=== PATIENT | female | born 2000 | race American Indian/Alaskan Native ===

== ENCOUNTER 2021-05-22 00:22 | Emergency (ER) | payer OTHER ==
[2021-05-22 02:10] LABS: Bilirubin,Urine NEG (Negative); Blood,Urine NEG (Negative); Color,Urine Yellow (Yellow); HCG Qualitative,Urine Negative (Negative); Mucus,Urine 3+ /HPF; Protein,Urine <15 mg/dL mg/dL (Negative); Urobilinogen,Urine < 2.0 mg/dL (<2.0)
[2021-05-22 02:20] LABS: Amphetamine Screen,Urine PRESUMPTIVE NEGATIVE; Benzodiazepines Screen,Urine PRESUMPTIVE NEGATIVE; Cannabinoid Screen,Urine PRESUMPTIVE NEGATIVE; Cocaine Screen,Urine PRESUMPTIVE NEGATIVE; Methadone Screen,Urine PRESUMPTIVE NEGATIVE; Opiate Screen,Urine PRESUMPTIVE NEGATIVE
[2021-05-22 02:23] LABS: Basophils # (Auto) 0.1 K/mm3 (0.0-0.1); Basophils % (Auto) 0.7 % (0.0-1.8); Eosinophils # (Auto) 0.1 K/mm3 (0.0-0.4); Eosinophils % (Auto) 1.1 % (0.0-4.3); Hemoglobin 12.9 gm/dl (10.1-14.3); Lymphocytes # (Auto) 1.5 K/mm3 (1.2-5.4); Lymphocytes % (Auto) 17.2 % (13.4-35.0); Mean Corpuscular HGB Conc 33 % (30-34); Mean Corpuscular Volume 86 fl (79-97); Monocytes # (Auto) 1.1 K/mm3 (0.0-0.8); Monocytes % (Auto) 13.2 % (0.0-7.3); Platelet Count 340 K/mm3 (140-440); Red Blood Count 4.53 M/mm3 (3.65-5.03); Red Cell Distribution Width 14.4 % (13.2-15.2)
[2021-05-22] MEDS ORDERED: LORazepam 2 MG/ML VIAL IM ONE (02:24)
[2021-05-22 02:37] LABS: BUN/Creatinine Ratio 14; Blood Urea Nitrogen 11 mg/dL (7-17); Calcium 9.9 mg/dL (8.4-10.2); Hemolysis Index 5
--- NOTE | 2021-05-22 05:00 | Emergency Department Report ---
ED Psych HPI - General Chief Complaint: Psych Stated Complaint: ANXIETY ATTACK Source: patient Mode of arrival: Ambulatory - History of Present Illness MD Complaint: suicidal ideation (This patient states she is hearing voices but refused to give details) Associated Psychiatric Symptoms: suicidal ideation Improves With: none Worsens With: none Context: recent drug abuse Treatments Prior to Arrival: none If Self Harm: other (The patient is very vague and will give minimal information) - Related Data Home Medications Medication Instructions Recorded Confirmed Last Taken hydrOXYzine HCL [Atarax] 25 mg PO Q6HR PRN 05/22/21 05/22/21 05/21/21 19:30 Allergies Allergy/AdvReac Type Severity Reaction Status Date / Time No Known Allergies Allergy Unverified 05/22/21 00:39 ED Review of Systems ROS: Stated complaint: ANXIETY ATTACK Other details as noted in HPI Psychiatric: anxiety, suicidal thoughts ED Past Medical Hx - Past Medical History Previous Medical History?: No Hx Psychiatric Treatment: (Pt denies) - Surgical History Past Surgical History?: Yes Additional Surgical History: ovarian - Social History Smoking Status: Former Smoker Substance Use Type: Alcohol - Medications Home Medications: Home Medications Medication Instructions Recorded Confirmed Last Taken Type hydrOXYzine HCL [Atarax] 25 mg PO Q6HR PRN 05/22/21 05/22/21 05/21/21 19:30 History ED Physical Exam - General Limitations: No Limitations General appearance: alert, anxious, other (Uncooperative) - Head Head exam: Present: atraumatic, normocephalic - Eye Eye exam: Present: normal appearance - ENT ENT exam: Present: mucous membranes moist - Neck Neck exam: Present: normal inspection - Respiratory Respiratory exam: Present: normal lung sounds bilaterally. Absent: respiratory distress - Cardiovascular Cardiovascular Exam: Present: tachycardia, normal heart sounds. Absent: systolic murmur, diastolic murmur - GI/Abdominal GI/Abdominal exam: Present: soft, normal bowel sounds - Rectal Rectal exam: Present: deferred - Extremities Exam Extremities exam: Present: normal inspection - Neurological Exam Neurological exam: Present: alert, oriented X3, CN II-XII intact, normal gait - Psychiatric Psychiatric exam: Present: anxious, flat affect - Skin Skin exam: Present: warm, dry, intact, normal color. Absent: rash ED Course Vital Signs 05/22/21 05/22/21 00:26 02:01 Temperature 98.7 F Pulse Rate 130 H 125 H Respiratory 18 18 Rate Blood Pressure 147/101 150/104 O2 Sat by Pulse 93 100 Oximetry ED Medical Decision Making - Lab Data Result diagrams: 05/22/21 01:59 05/22/21 01:59 - Medical Decision Making Patient remained stable during observation in the emergency department. She however is demanding to receive her lithium. The decision will be made to administer this medication while she is evaluated by the mental health staff. The patient was given Ativan and this was later followed by [facility] for her anxiety and restlessness. The current plan is to have the patient evaluated by mental health to determine if there is a need for a 5150 and further evaluation. Critical care attestation.: If time is entered above; I have spent that time in minutes in the direct care of this critically ill patient, excluding procedure time. ED Disposition Condition: Stable Referrals: MADDI NIXON MD [Primary Care Provider] - 3-5 Days
--- NOTE | 2021-05-22 11:50 | Consultation ---
History of Present Illness - Reason for Consult Consult date: 05/22/21 Reason for consult: hallucinations - History of Present Psychiatric Illness The patient is a 21 year old female with history of schizophrenia who presents to the ED with hallucinations. In my encounter with the patient, she is calm but anxious. The patient reports being overwhelmed; she states she recently moved to [place], switching jobs and was recently evicted from her apartment. The patient reports difficulty with sleep, reporting not sleeping for the past 3 days. She reports having auditory/visual hallucinations " voices telling her to harm others and states she is seeing people and figures." She denies any current suicidal ideation. PAST PSYCHIATRIC HISTORY Diagnoses: schizophrenia Suicide attempts or Self-harm behavior: Denies Prior psychiatric hospitalizations: Yes Substance Abuse history: Alcohol Previous psychiatric medications tried: could not recall Outpatient treatment: Denies PAST MEDICAL HISTORY: None reported Family Psychiatric History: None reported or documented SOCIAL HISTORY Living arrangement: Homeless Marital status: Single Unemployed REVIEW OF SYSTEMS Constitutional: Negative for weight loss ENT: Negative for stridor Respiratory: Negative for cough or hemoptysis All other systems reviewed and are negative MENTAL STATUS EXAMINATION General Appearance and Behavior: Age appropriate, good hygiene, wearing appropriate clothes, good eye contact, calm, cooperative Cooperation: Participating/engaged, but Guarded Psychomotor Behavior: Psychomotor normal Mood: anxious Affect and affective range: congruent with stated mood Thought Process: Circumstantial Thought Content:Hallucinations Speech: normal tone and pace Suicidal Ideation: Denies Homicidal Ideation: Denies Hallucinations: Auditory/visual Delusions: None elicited Impulse Control: Limited Insight and Judgment: Limited insight and judgment Memory: Limited Attention: Divided Orientation: Alert, oriented Assessment and Plan Schizophrenia Treatment 1013 Seroquel 25mg po BID Seroquel 50mg po QHS Trazodone 50mg po qhs Sitter: Per primary Medical: Per primary Disposition: Recommend acute psychiatric inpatient treatment Will follow. Thank you for this consult Case staffed with Dr. Morris Medications and Allergies Medications and Allergies Allergies Allergy/AdvReac Type Severity Reaction Status Date / Time No Known Allergies Allergy Unverified 05/22/21 00:39 Home Medications Medication Instructions Recorded Confirmed Last Taken Type hydrOXYzine HCL [Atarax] 25 mg PO Q6HR PRN 05/22/21 05/22/21 05/21/21 19:30 History Mental Status Exam - Vital signs Last Vital Signs Temp 98.6 F 05/22/21 08:11 Pulse 112 H 05/22/21 08:11 Resp 17 05/22/21 08:11 BP 136/91 05/22/21 08:11 Pulse Ox 100 05/22/21 09:00 Results Result Diagrams: 05/22/21 01:59 05/22/21 01:59 Abnormal lab results 05/22/21 05/22/21 05/22/21 Range/Units 01:59 01:59 01:59 Leake % (Auto) (0.0-7.3) % Leake # (Auto) (0.0-0.8) K/mm3 Glucose 121 H (65-100) mg/dL Salicylates < 0.3 L (2.8-20.0) mg/dL Acetaminophen 5.0 L (10.0-30.0) ug/mL 05/22/21 Range/Units 01:59 Leake % (Auto) 13.2 H (0.0-7.3) % Leake # (Auto) 1.1 H (0.0-0.8) K/mm3 Glucose (65-100) mg/dL Salicylates (2.8-20.0) mg/dL Acetaminophen (10.0-30.0) ug/mL All other labs normal.
--- NOTE | 2021-05-22 12:03 | Event Note ---
Date: 05/22/21 vss no distress, no events overnight medically cleared psych assessment , continue 1013 awiting transfer to inpatient psych
[2021-05-22] MEDS: QUEtiapine 25 MG TAB PO SCH ×2 (14:41→22:00)
[2021-05-22] MEDS ORDERED: HALOPERIDOL LACTATE 5 MG/1 ML INJ ONE (15:13)
[2021-05-22] MEDS ORDERED: HALOPERIDOL LACTATE 5 MG/1 ML INJ IM ONE (18:22)
[2021-05-22] MEDS ORDERED: QUEtiapine 25 MG TAB PO SCH (22:00)
[2021-05-22 23:11] VITALS: BP 126/87
--- NOTE | 2021-05-25 08:52 | Electrocardiograph Report ---
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
== END 2021-05-23 00:54 ==
LOC: ED 00:22
DX: R45.851 Suicidal ideations (principal); Z20.822 Contact with and (suspected) exposure to COVID-19
CPT/HCPCS: 36415; 80048; 80307; 81001; 81025; 85025; 93005; 96372; 99285; J1630; J2060; U0003; 80320; G0480

== ENCOUNTER 2021-11-10 09:25 | Emergency (ER) | payer OTHER ==
[2021-11-10 09:31] VITALS: BP 133/74
[2021-11-10] MEDS ORDERED: ZIPRASIDONE 20 MG CAP PO ONE ×2 (10:12→12:29)
[2021-11-10 11:02] LABS: Amphetamine Screen,Urine Negative; Benzodiazepines Screen,Urine Negative; Cannabinoid Screen,Urine Negative; Cocaine Screen,Urine Negative; Methadone Screen,Urine Negative; Opiate Screen,Urine Negative
[2021-11-10 11:09] LABS: Bacteria,Urine 1+ /HPF (Negative); Mucus,Urine FEW /HPF
[2021-11-10 11:18] LABS: Color,Urine Straw (Yellow)
[2021-11-10] MEDS ORDERED: SULFAMETHOXAZOLE/TRIMETHOPRIM 800/160MG DS TAB PO STA (11:38)
--- NOTE | 2021-11-10 11:40 | Emergency Department Report ---
HPI - General Chief Complaint: Psych PUI?: No Time Seen by Provider: 11/10/21 10:12 - HPI HPI: 21-year-old female with extensive psychiatric history presents for evaluation of medication noncompliance. Patient states "I tried to get myself here because I was not feeling well like my mind was all messed up, you know what I mean?" She denies any thoughts of hurting herself or others. When asked about auditory visual hallucinations, patient will not provide information to this provider. She complains of urinary frequency and urgency. No vaginal bleeding or discharge. Patient states last menstrual cycle "was a little while ago." Do not clarify further when asked by this provider. Pain currently 0-10. ED Past Medical Hx - Past Medical History Previous Medical History?: Yes Hx Psychiatric Treatment: Yes (schizophrenia) - Surgical History Past Surgical History?: Yes Hx Appendectomy: No Additional Surgical History: ovarian - Social History Smoking Status: Former Smoker Substance Use Type: Alcohol - Medications Home Medications: Home Medications Medication Instructions Recorded Confirmed Last Taken Type hydrOXYzine HCL [Atarax] 25 mg PO Q6HR PRN 05/22/21 05/22/21 05/21/21 19:30 History ED Review of Systems ROS: Stated complaint: PSYCH Other details as noted in HPI Comment: All other systems reviewed and negative Physical Exam - Physical Exam Vital Signs: Vital Signs 11/10/21 09:28 Temperature 98.8 F Pulse Rate 125 H Respiratory 17 Rate Blood Pressure 133/74 [Right] O2 Sat by Pulse 98 Oximetry General: Gen: Young adult female, disheveled, slow to verbally responds,, no drooling no stridor, no respiratory distress, breathing unlabored, nontoxic-appearing HEENT: Normocephalic atraumatic pupils equally round and reactive to light extraocular muscles intact sclera anicteric Neck: Full range of motion, no midline spinal tenderness palpation, no JVD, no carotid bruits, no nuchal rigidity CVS: S1-S2 regular rate and rhythm with no gallops rubs or murmurs, chest wall nontender Pulmonary: Clear to auscultation bilaterally, no wheezes rales or rhonchi Abdomen: Soft nondistended nontender no guarding or rebound tenderness, no palpable deformities or step-offs, normal active bowel sounds, no hepatosplenomegaly, no pulsatile masses : Deferred Extremities: No cyanosis no clubbing no edema, intact distal peripheral pulses, Integumentary: Skin normal, no petechia no purpura no abscess no lacerations no evidence of trauma no evidence of infection Neuro: Patient is awake alert and oriented to person place time situation, mentating well, cranial nerves II through XII intact, no focal neurodeficits, sensation grossly tact Psych: Patient is intermittently argumentative with staff members, but able to be redirected, patient intermittently observed to be laughing and talking to herself, and responding to internal stimuli per my direct observation, difficult to redirect,, slow to respond, ED Course Vital Signs 11/10/21 09:28 Temperature 98.8 F Pulse Rate 125 H Respiratory 17 Rate Blood Pressure 133/74 [Right] O2 Sat by Pulse 98 Oximetry ED Medical Decision Making - Lab Data Result diagrams: 11/10/21 11:34 11/10/21 11:34 - Medical Decision Making 21-year-old female with a history of schizophrenia, noncompliant with her medications, presents for evaluation of what she states is "a break with my schizophrenia." Patient reports several weeks of being noncompliant. Here she is intermittently argumentative with staff members but also is found to be intermittently slow to respond at times. Labs reviewed. Patient reports UTI symptoms and she is found to have acute cystitis on her urinalysis today. Bactrim given here. The patient has been deemed medically stable and she has been cleared by me. 1013 form signed. Mental health consultation placed. Patient will be kept in the psychiatric holding area for further evaluation and final disposition by psychiatry. Critical Care Time: No Critical care attestation.: If time is entered above; I have spent that time in minutes in the direct care of this critically ill patient, excluding procedure time. ED Disposition Clinical Impression: Acute cystitis, Schizophrenia Disposition: 30 STILL A PATIENT Is pt being admited?: No Does the pt Need Aspirin: No Condition: Stable
[2021-11-10 12:23] LABS: BUN/Creatinine Ratio 9; Blood Urea Nitrogen 8 mg/dL (7-17); Calcium 9.9 mg/dL (8.4-10.2); Hemolysis Index 2
[2021-11-10 12:28] LABS: Basophils % (Auto) 0.5 % (0.0-1.8); Hematocrit 37.6 % (30.3-42.9); Hemoglobin 12.6 gm/dl (10.1-14.3); Lymphocytes # (Auto) 1.2 K/mm3 (1.2-5.4); Lymphocytes % (Auto) 11.6 % (13.4-35.0); Mean Corpuscular HGB Conc 34 % (30-34); Mean Corpuscular Volume 87 fl (79-97); Monocytes # (Auto) 0.7 K/mm3 (0.0-0.8); Monocytes % (Auto) 6.9 % (0.0-7.3); Platelet Count 392 K/mm3 (140-440); Red Blood Count 4.31 M/mm3 (3.65-5.03); Red Cell Distribution Width 13.9 % (13.2-15.2)
--- NOTE | 2021-11-10 13:24 | Consultation ---
History of Present Illness - Reason for Consult Consult date: 11/10/21 Reason for consult: mental health evaluation - History of Present Psychiatric Illness PER NOTE: 21-year-old female with extensive psychiatric history presents for evaluation of medication noncompliance. Patient states "I tried to get myself here because I was not feeling well like my mind was all messed up, you know what I mean?" She denies any thoughts of hurting herself or others. When asked about auditory visual hallucinations, patient will not provide information to this provider. She complains of urinary frequency and urgency. No vaginal bleeding or discharge. Patient states last menstrual cycle "was a little while ago." Do not clarify further when asked by this provider. Pain currently 0-10. Patient is a 21 year-old female with history of "psychosis," with history of medication noncompliance x2 months. The patient is unable to participate in asse ssment at this time. PAST PSYCHIATRIC HISTORY PAST MEDICAL HISTORY: None reported Family Psychiatric History: SOCIAL HISTORY REVIEW OF SYSTEMS MENTAL STATUS Assessment: Major Depressive Disorder Treatment Plan 1013 Continue home medicines PSYCHOTHERAPY: Supportive psychotherapy provided MEDICAL: Per primary team DELIRIUM PRECAUTIONS: Please re-orient patient frequently, keep lights on during the day, and minimize benzodiazepines and opiates as these medications could worsen patient's confusion. 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 FOLLOW-UP: Will follow. Thanks Case staffed with Dr. Morris Medications and Allergies Medications and Allergies Allergies Allergy/AdvReac Type Severity Reaction Status Date / Time No Known Allergies Allergy Verified 05/22/21 15:23 Home Medications Medication Instructions Recorded Confirmed Last Taken Type hydrOXYzine HCL [Atarax] 25 mg PO Q6HR PRN 05/22/21 05/22/21 05/21/21 19:30 History Mental Status Exam - Vital signs Last Vital Signs Temp 98.8 F 11/10/21 09:28 Pulse 125 H 11/10/21 09:28 Resp 18 11/10/21 12:41 BP 133/74 11/10/21 09:28 Pulse Ox 98 11/10/21 12:41 Results Result Diagrams: 11/10/21 11:34 11/10/21 11:34 Abnormal lab results 11/10/21 11/10/21 11/10/21 Range/Units 11:34 11:34 11:34 Lymph % (Auto) 11.6 L (13.4-35.0) % Seg Neutrophils % 81.0 H (40.0-70.0) % Seg Neutrophils # 8.2 H (1.8-7.7) K/mm3 Glucose 123 H (65-100) mg/dL Salicylates < 0.3 L (2.8-20.0) mg/dL Acetaminophen (10.0-30.0) ug/mL 11/10/21 Range/Units 11:34 Lymph % (Auto) (13.4-35.0) % Seg Neutrophils % (40.0-70.0) % Seg Neutrophils # (1.8-7.7) K/mm3 Glucose (65-100) mg/dL Salicylates (2.8-20.0) mg/dL Acetaminophen 5.0 L (10.0-30.0) ug/mL All other labs normal.
[2021-11-10] MEDS ORDERED: hydrOXYzine HCL 25 MG TAB PO PRN (18:00)
== END 2021-11-10 20:00 | disposition still patient (30) ==
LOC: ED 09:25
DX: N30.00 Acute cystitis without hematuria (principal); F20.9 Schizophrenia, unspecified; Z87.891 Personal history of nicotine dependence; Z72.89 Other problems related to lifestyle; Z98.890 Other specified postprocedural states; Z79.899 Other long term (current) drug therapy
CPT/HCPCS: 36415; 80048; 80307; 80320; 81001; 84703; 85025; 99285; G0480